=== PATIENT | male | born 1985 | race Caucasian/White ===

== ENCOUNTER 2021-10-19 16:00 | Inpatient (IN) | payer BC, SELFPAY ==
[2021-10-19 16:29] VITALS: BP 131/83; PULSE 73; TEMP 35.8
[2021-10-19 17:01] VITALS: BMI 33.5
[2021-10-19] MEDS: traZODone HCL 50 MG TABLET PO (20:01)
[2021-10-19] MEDS: hydrOXYzine HCL 25 MG TABLET PO (20:01)
[2021-10-19] MEDS: QUEtiapine Fumarate 25 MG TABLET PO (20:01)
[2021-10-19] MEDS: Melatonin 3 MG TABLET PO (20:01)
--- NOTE | 2021-10-19 20:40 | PC.ADMIT ---
Pt is a 36 year old [place]ian speaking male who presented to from [facility] at approx 1630 on a cv status. Pt is covid + and tested on , pt is asymptomatic and not contagious but continues to test positive due to having COVID within 3 months. tox screen - Per chart review, Pt presented to the [facility] ED after increasing SI stating he had a knife in the car and was going to end his life, pt also wrote suicidal notes to family. Pt had many recent stressors, 2 deaths and the end of a 6 year relationship. During the admit pt stated his anxiety and depression were both an 8 out of 10. Pt briefly spoke with MD about wanting to switch medications. Pt reported that he is having a hard time adjusting to breaking up with his girlfriend. Pt denied SI/HI/AH/VH/SIB at this time. Pt denied any trauma hx. DR Muller called and notified of admission. Pt was pleasant and cooperative during his admit. Pt signed a 3-day notice on 10/19/21.... 3 day up on 10/22/21. Start treatment plan and monitor for safety
[2021-10-20 06:00] VITALS: BP 112/61; PULSE 64; RESP 16; TEMP 36.8; O2SAT 95
[2021-10-20 08:58] LABS: Cholesterol 137 mg/dL; HDL Cholesterol 44 mg/dL; LDL Cholesterol Calculated 79 mg/dl; Triglycerides 72 mg/dL
[2021-10-20] MEDS: Escitalopram Oxalate 20 MG TABLET PO (09:01)
[2021-10-20] MEDS: QUEtiapine Fumarate 25 MG TABLET PO ×2 (09:01→14:40)
--- NOTE | 2021-10-20 16:19 | HO.HSGERICON ---
History of Present Illness Data of Consult Service Date: 10/20/21 Primary Care Provider: Unknown Physician HPI Reason for consult: admission 36M presented to inpatient psychiatry for suicidal ideation, patient denies any past medical history, denies chest pain, shortness of breath, fever, chills. He did test positive for COVID, but is recently recovered. Review of Systems Review of Systems: Yes all other systems are reviewed and are negative [facility] Medical History (Updated 10/20/21 @ 16:22 by Casey Molina MD) Depression Family History (Updated 10/20/21 @ 16:21 by Casey Molina MD) Other No family history of coronary artery disease Social History Household Members: Family Housing: House Do you presently have visiting nurse or other home services: No Patient Tobacco Use Status: Never used Tobacco Use of substances other than those prescribed or required for medical reasons: No Currently Displaying Signs/Symptoms of Drug Intoxication Withdrawal: No Have you been hit, kicked, punched, or otherwise hurt by someone within the past year? If so, by whom?: No Do you feel safe in your current relationship?: No Current Relationship Is there a partner from a previous relationship who is making you feel unsafe now?: No Are you made to feel afraid or neglected: No Advance Directives: No Advance Directives Information Provided: No Do you have thoughts of harming others: None Do you have a plan to hurt others: No Plan Recently lost weight without trying: No How much weight loss: Not applicable Eating poorly because of decreased appetite: No Nutrition screen score: 0 Nutrition Risks: No Nutritional Risk Poor oral hygiene: No Meds Allergies Allergy/AdvReac Type Severity Reaction Status Date / Time No Known Allergies Allergy Verified 10/19/21 17:03 Active Medications: Current Medications Acetaminophen (Acetaminophen 325 Mg Tablet) 650 mg PO Q6H PRN PRN Reason: Headache/Pain Mild Scale (1-3) Al Hydroxide/Mg Hydroxide (Magnesium Hydrox/Alum Hydrox 30 Ml Oral.Susp) 30 ml PO Q6H PRN PRN Reason: Heartburn/Nausea Escitalopram Oxalate (Escitalopram Oxalate 20 Mg Tablet) 20 mg PO DAILY [facility] Last Admin: 10/20/21 09:01 Dose: 20 mg Documented by: Hydroxyzine HCl (Hydroxyzine Hcl 25 Mg Tablet) 25 mg PO TID PRN PRN Reason: anxiety Last Admin: 10/19/21 20:01 Dose: 25 mg Documented by: Lorazepam (Lorazepam 1 Mg Tablet) 1 mg PO DAILY PRN PRN Reason: severe anxiety Magnesium Hydroxide (Milk Of Magnesia 30 Ml Oral.Susp) 30 ml PO DAILY PRN PRN Reason: Constipation Melatonin (Melatonin 3 Mg Tablet) 3 mg PO BEDTIME [facility] Last Admin: 10/19/21 20:01 Dose: 3 mg Documented by: Nicotine Polacrilex (Nicotine Polacrilex 2 Mg Gum) 4 mg BUCCAL Q2H PRN PRN Reason: Nicotine Cravings Quetiapine Fumarate (Quetiapine Fumarate 25 Mg Tablet) 25 mg PO TID [facility] Last Admin: 10/20/21 14:40 Dose: 25 mg Documented by: Trazodone HCl (Trazodone Hcl 50 Mg Tablet) 50 mg PO BEDTIME PRN PRN Reason: Insomnia Last Admin: 10/19/21 20:01 Dose: 50 mg Documented by: Home Medications Medication Instructions Recorded Confirmed Last Taken Type escitalopram oxalate 10 mg tablet 1 tab PO BEDTIME 10/19/21 10/19/21 10/18/21 History escitalopram oxalate 20 mg tablet 1 tab PO DAILY 10/19/21 10/19/21 10/18/21 History hydroxyzine pamoate 25 mg capsule cap PO 10/19/21 Unknown History quetiapine 25 mg tablet 1 tab PO BEDTIME 10/19/21 10/19/21 10/18/21 History sertraline 100 mg tablet 1 tab PO DAILY 10/19/21 10/19/21 10/18/21 History Results Labs Labs: Laboratory Results - last 24 hr 10/20/21 07:51 Triglycerides 72 Cholesterol 137 LDL Cholesterol, Calc 79 HDL Cholesterol 44 Assessment and Plan (1) Depression: Status: Acute Plan 36M admitted to inpatient psychiatry covid positive recently recovered, unlikely to be new infection Physical Exam Vital Signs: Last Vital Signs Temp 98.2 F 10/20/21 06:00 Pulse 64 10/20/21 06:00 Resp 16 10/20/21 06:00 BP 112/61 10/20/21 06:00 Pulse Ox 95 10/20/21 06:00 BMI result Body Mass Index 33.5 General: AO X 3, no acute distress Resp: CTA bilateral, no accessory muscles used CVS: S1,S2,RRR GI: soft, non tender, non distended Neuro: motor grossly intact, alert Neuro Cranial nerves: Yes CN's II-XII intact bilaterally
--- NOTE | 2021-10-20 17:00 | P.HPPS_ITS ---
HPI Date of Service: 10/20/21 Chief Complaint: Unspecified depressive d/o Sources of Information: patient interviewed, chart reviewed and crisis/core team assessment reviewed HPI Subjective Notes: Healy Warning, Conditional Voluntary and 3 Day Narrative: pt is a 36 yo male with hx of mild depression who presents for depression, new onset panic attacks and SI with a plan in face of grieving of ex-partner and recent break up. Pt reports that he struggles with mild depression from time to time but overall is in a good enough mood with little anxiety. He was on Zoloft 100mg unitl this past April but scheduling issues made him loose access to refills. Patient has had several psychosocial stressors over past few months. His work is seasonal and he's laid off in the winter and typically around August he starts to feel more down. The mother of his child from an overdose this past May and despite their romantic separation, they remained close friends. Soon after that pt got back together with recent girlfriend and t hought they were going to get ; he got Covid and got a little depressed being alone in the house, but was shocked when his girlfriend broke up with him and started seeing someone else. This event started him becoming more depressed and for the first time he had passive thoughts of being better off . His psychiatrist started him on Lexapro. Over last few weeks Patient developed panic attacks for the first time, 2x per week during which time he became momentarily suicidal. Just prior to admission he had a panic attack and afterword, took a knife intending to cut himself; he thought better of it and called numerous people, one of whom called back and helped him get to ED. Denies hx of manic epsisodes, behaviors; denies current substance abuse; denies AVH. 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 Substance History: drank daily for 2 weeks in July when girlfriend broke up w/ him; otherwise denies substance abuse Trauma History: denies Diagnostics Vital Signs (24Hr): Vital Signs - 24 hr 10/20/21 06:00 Temperature 98.2 F Pulse Rate 64 Respiratory Rate 16 Blood Pressure 112/61 Pulse Oximetry 95 BMI result Body Mass Index 33.5 Labs Labs: Laboratory Results - last 48 hr 10/20/21 07:51 Triglycerides 72 Cholesterol 137 LDL Cholesterol, Calc 79 HDL Cholesterol 44 Meds/Allergies Meds Home Medications Acetaminophen (Acetaminophen 325 Mg Tablet) 650 mg PO Q6H PRN PRN Reason: Headache/Pain Mild Scale (1-3) Al Hydroxide/Mg Hydroxide (Magnesium Hydrox/Alum Hydrox 30 Ml Oral.Susp) 30 ml PO Q6H PRN PRN Reason: Heartburn/Nausea Bupropion HCl (Bupropion Hcl Xl 150 Mg Tab.Er.24h) 150 mg PO DAILY [facility] Escitalopram Oxalate (Escitalopram Oxalate 10 Mg Tablet) 10 mg PO DAILY [facility] Stop: 10/22/21 11:00 Hydroxyzine HCl (Hydroxyzine Hcl 25 Mg Tablet) 25 mg PO TID PRN PRN Reason: anxiety Last Admin: 10/19/21 20:01 Dose: 25 mg Documented by: Lorazepam (Lorazepam 1 Mg Tablet) 1 mg PO DAILY PRN PRN Reason: severe anxiety Magnesium Hydroxide (Milk Of Magnesia 30 Ml Oral.Susp) 30 ml PO DAILY PRN PRN Reason: Constipation Melatonin (Melatonin 3 Mg Tablet) 3 mg PO BEDTIME [facility] Last Admin: 10/20/21 21:06 Dose: 3 mg Documented by: Mirtazapine (Mirtazapine 7.5 Mg Tablet) 7.5 mg PO BEDTIME [facility] Last Admin: 10/20/21 21:06 Dose: 7.5 mg Documented by: Nicotine Polacrilex (Nicotine Polacrilex 2 Mg Gum) 4 mg BUCCAL Q2H PRN PRN Reason: Nicotine Cravings Trazodone HCl (Trazodone Hcl 50 Mg Tablet) 50 mg PO BEDTIME PRN PRN Reason: Insomnia Last Admin: 10/19/21 20:01 Dose: 50 mg Documented by: Allergies Allergies Allergy/AdvReac Type Severity Reaction Status Date / Time No Known Allergies Allergy Verified 10/19/21 17:03 Mental Status Exam Mental Status Exam Narrative: Pt is alert and oriented; behavior is cooperative, friendly and calm; patient is not in distress; dressed in casual attire with unkempt hair but adequate hygiene; mood is described as anxious and affect congruent; eye contact appropriate; Speech is normal rate, volume and prosody and not pressured; no psychomotor agitation/retardation present; thought process is organized and goal directed; Thought content is on tx; otherwise pertinent to relevant topics and without any delusional content, paranoid ideations or grandiosity; denies any SI/HI. There is no evidence of perceptual disturbance. Patients insight and judgment appear intact. Assessment & Plan Assessment & Plan (1) MDD (major depressive disorder), single episode, severe: Status: Acute Code(s): F32.2 - Major depressive disorder, single episode, severe without psychotic features (2) Panic attack: Status: Acute Code(s): F41.0 - Panic disorder [episodic paroxysmal anxiety] Plan pt is a 36 yo male with hx of mild depression who presents for depression, new onset panic attacks and SI with a plan in face of grieving of ex-partner and recent break up. -mdd, panic -agrees to start wellbturin (disdcussed risks/side-effects) -hx of spontaneous priaprsm; still wants trazodone even after knowing risks/side-effects however agrees to start mirtazapine to help w/ sleep (and anxiety/depression) so as possibly to avoid trazodone risks Patient educated on: diagnosis, medication risk/benefits, substance abuse and therapeutic strategies Informed Consent: understands Reason for continued inpatient stay Substantial Risk for: rapid decompensation
[2021-10-20 18:00] VITALS: BP 156/83; PULSE 101; RESP 16; TEMP 36.2; O2SAT 95
[2021-10-20] MEDS: Mirtazapine 7.5 MG TABLET PO (21:06)
[2021-10-20] MEDS: Melatonin 3 MG TABLET PO (21:06)
[2021-10-21 06:00] VITALS: BP 141/74; PULSE 62; RESP 16; O2SAT 97
[2021-10-21] MEDS: Escitalopram Oxalate 10 MG TABLET PO (08:32)
[2021-10-21] MEDS: buPROPion HCl XL 150 MG TAB.ER.24H PO (08:32)
--- NOTE | 2021-10-21 10:29 | HO.PSYCHPN ---
Subjective Subjective Date of Service: 10/21/21 Reason For Visit: Unspecified depressive d/o Interim History: Patient reports that his mood is really good. He feels that medications are helpful and he is pleased with change in medication regimen. He denies any side effects. He says he slept well last night. Patient has not had any SI since admission and he remains without SI, HI or AVH. He is also optimistic about the future and continuing treatment saying he would like to get into therapy. Patient said that work is starting up again and he is looking for to going back that was going to take a few days off prior just to continue to recuperate. Patient says that the 2 weeks he was binge drinking was the 1st time he has ever done that in his life any does not think he will continue to struggle with alcohol abuse. Flame Brazing Machine Operator discussed again medication regimen, risks/side effects to which he agrees. Flame Brazing Machine Operator specially talked about the risk of trazodone and risk of Priaprsim of present given the fact that he has had spontaneous Priaprsim in the past not related to medication (and went to ED; resolved on Sudafed). He understands this risk and his vulnerability, however he would still like to continue with trazodone as needed for sleep. Patient has a 3 day notice which is due tomorrow. He said he would like to discharge, feeling stable and ready to go home. Patient is not in imminent risk for harm to self or others and his request for discharge honored. Patient shared gratitude for help received. Mental Status Exam Mental Status Exam Narrative: Pt is alert and oriented; behavior is cooperative, friendly and calm; patient is not in distress; dressed in casual attire with facial hair and adequate hygiene; mood is described as good and affect congruent, calm; eye contact appropriate; Speech is normal rate, volume and prosody and not pressured; no psychomotor agitation/retardation present; thought process is organized and goal directed; Thought content is on tx; otherwise pertinent to relevant topics and without any delusional content, paranoid ideations or grandiosity; denies any SI/HI. There is no evidence of perceptual disturbance. ?Patients insight and judgment appear intact. Diagnostics Vital Signs (24Hr): Vital Signs - 24 hr 10/20/21 18:00 10/21/21 06:00 Temperature 97.2 F Pulse Rate 101 H 62 Respiratory Rate 16 16 Blood Pressure 156/83 H 141/74 H Pulse Oximetry 95 97 BMI result Body Mass Index 33.5 Labs Labs: Laboratory Results - last 48 hr 10/20/21 07:51 Triglycerides 72 Cholesterol 137 LDL Cholesterol, Calc 79 HDL Cholesterol 44 Medications Medications Current Medications Acetaminophen (Acetaminophen 325 Mg Tablet) 650 mg PO Q6H PRN PRN Reason: Headache/Pain Mild Scale (1-3) Al Hydroxide/Mg Hydroxide (Magnesium Hydrox/Alum Hydrox 30 Ml Oral.Susp) 30 ml PO Q6H PRN PRN Reason: Heartburn/Nausea Bupropion HCl (Bupropion Hcl Xl 150 Mg Tab.Er.24h) 150 mg PO DAILY [facility] Last Admin: 10/21/21 08:32 Dose: 150 mg Documented by: Escitalopram Oxalate (Escitalopram Oxalate 10 Mg Tablet) 10 mg PO DAILY [facility] Stop: 10/22/21 11:00 Last Admin: 10/21/21 08:32 Dose: 10 mg Documented by: Hydroxyzine HCl (Hydroxyzine Hcl 25 Mg Tablet) 25 mg PO TID PRN PRN Reason: anxiety Last Admin: 10/19/21 20:01 Dose: 25 mg Documented by: Lorazepam (Lorazepam 1 Mg Tablet) 1 mg PO DAILY PRN PRN Reason: severe anxiety Magnesium Hydroxide (Milk Of Magnesia 30 Ml Oral.Susp) 30 ml PO DAILY PRN PRN Reason: Constipation Melatonin (Melatonin 3 Mg Tablet) 3 mg PO BEDTIME [facility] Last Admin: 10/20/21 21:06 Dose: 3 mg Documented by: Mirtazapine (Mirtazapine 7.5 Mg Tablet) 7.5 mg PO BEDTIME [facility] Last Admin: 10/20/21 21:06 Dose: 7.5 mg Documented by: Nicotine Polacrilex (Nicotine Polacrilex 2 Mg Gum) 4 mg BUCCAL Q2H PRN PRN Reason: Nicotine Cravings Trazodone HCl (Trazodone Hcl 50 Mg Tablet) 50 mg PO BEDTIME PRN PRN Reason: Insomnia Last Admin: 10/19/21 20:01 Dose: 50 mg Documented by: Allergies Allergies Allergy/AdvReac Type Severity Reaction Status Date / Time No Known Allergies Allergy Verified 10/19/21 17:03 Assessment & Plan Assessment & Plan (1) MDD (major depressive disorder), single episode, severe: Status: Acute Code(s): F32.2 - Major depressive disorder, single episode, severe without psychotic features (2) Panic attack: Status: Acute Code(s): F41.0 - Panic disorder [episodic paroxysmal anxiety] Plan pt is a 36 yo male with hx of mild depression who presents for depression, new onset panic attacks and SI with a plan in face of grieving of ex-partner and recent break up. -mdd, panic -agrees to start wellbturin (discussed risks/side-effects) -hx of spontaneous priaprsm; still wants trazodone even after knowing risks/side-effects however agrees to start mirtazapine to help w/ sleep (and anxiety/depression) so as possibly to avoid trazodone risks -SI was resolved even prior to admission and has remained so throughout. Patient's mood is good, and affect is calm and bright. He is future oriented and feels ready to go home, feeling stable and safe for discharge. Patient feels that medication regimen is helpful and he wants to continue on it. He has not had any panic attacks since coming to the unit. He is looking forward to returning to work saying he does best when he's acitve. Discussed alcohol abuse and pt feels it was situational, that drinking daily had never happened before and that he will be able tor remain sober. Pt submitted a 3day notice which is due tomorrow. He is not in imminent risk of harm to self or others and does not meet criteria for involuntary commitment. Pt's request for discharge honored. Flame Brazing Machine Operator discussed again medication regimen, risks/side effects to which he agrees. Flame Brazing Machine Operator specially talked about the risk of trazodone and risk of Priaprsim of present given the fact that he has had spontaneous Priaprsim in the past not related to medication (and went to ED; resolved on Sudafed). He understands this risk and his vulnerability, however he would still like to continue with trazodone as needed for sleep. Patient has a 3 day notice which is due tomorrow. He said he would like to discharge, feeling stable and ready to go home. Patient is not in imminent risk for harm to self or others and his request for discharge honored. Patient shared gratitude for help received. I spent minutes with the patient and/or on the patient floor today, greater than?50% of which was spent counseling/coordinating care. Patient educated on: diagnosis, medication risk/benefits, substance abuse and therapeutic strategies Informed Consent: understands Reason for contiued inpatient stay Substantial Risk for: stable for discharge
[2021-10-21 18:00] VITALS: BP 148/88; PULSE 81; RESP 18; TEMP 36.4; O2SAT 97
[2021-10-21] MEDS: Mirtazapine 7.5 MG TABLET PO (20:12)
[2021-10-21] MEDS: Melatonin 3 MG TABLET PO (20:12)
[2021-10-22 06:00] VITALS: BP 123/82; PULSE 73; TEMP 37; O2SAT 97
[2021-10-22] MEDS: buPROPion HCl XL 150 MG TAB.ER.24H PO (09:02)
[2021-10-22] MEDS: Escitalopram Oxalate 10 MG TABLET PO (09:02)
--- NOTE | 2021-10-22 09:14 | PM.PSYDC ---
DS: Providers Provider Date of Service: 10/22/21 Date of admission: 10/19/21 16:00 Date of discharge: 10/22/21 Primary care physician: Unknown Physician Attending physician on admission: Blade Muller Consults: 10/19/21 18:07 Consult to Hospitalist Routine Consulting Provider: Hospitalist Reason For Exam: admission physical Attending physician on discharge: Blade Muller DS: Diagnosis Discharge Diagnosis (1) MDD (major depressive disorder), single episode, severe: Status: Acute (2) Panic attack: Status: Resolved DS: Medications Discharge Medications Home Medications: Previous Rx's Medication Instructions Recorded bupropion HCl 150 mg 24 hr tablet, 150 mg PO DAILY 30 Days #30 tab 10/22/21 extended release hydroxyzine pamoate 25 mg capsule 25 mg PO DAILY PRN 30 Days #60 cap 10/22/21 melatonin 3 mg tablet 3 mg PO BEDTIME #0 tab 10/22/21 mirtazapine 7.5 mg tablet 7.5 mg PO BEDTIME 30 Days #30 tab 10/22/21 Mental Status Exam Mental Status Exam Narrative: Pt is alert and oriented; behavior is cooperative, friendly and calm; patient is not in distress; dressed in casual attire with facial hair and adequate hygiene; mood is described as good and affect congruent, calm; eye contact appropriate; Speech is normal rate, volume and prosody and not pressured; no psychomotor agitation/retardation present; thought process is organized and goal directed; Thought content is on tx and discharge; otherwise pertinent to relevant topics and without any delusional content, paranoid ideations or grandiosity; denies any SI/HI. There is no evidence of perceptual disturbance. ?Patients insight and judgment are intact. Data Data Completed and Pending Completed studies during hospitalization [Text1]: 10/20/21 07:51 Triglycerides 72 Cholesterol 137 LDL Cholesterol, Calc 79 HDL Cholesterol 44 DS: Summary Hospital Course Hospital Course: pt is a 36 yo male with hx of mild depression who presents for depression, new onset panic attacks and SI with a plan in face of grieving of ex-partner and recent break up. -mdd, panic On admission, pt calm, cooperative w/out SI -agrees to start wellbturin? (discussed risks/side-effects) -hx of spontaneous priaprsm however still wants trazodone even after knowing risks/side-effects; agrees to start mirtazapine to help w/ sleep (and anxiety/depression) so as possibly to avoid trazodone risks -SI was resolved even prior to admission and has remained so throughout.? Patient's mood reported as good throughout admission and affect is calm and bright.? He is future oriented and feels ready to go home, feeling stable and safe for discharge.? Patient feels that medication regimen is helpful and he wants to continue on it.? He has not had any panic attacks since coming to the unit. He is looking forward to returning to work saying he does best when he's acitve. Discussed alcohol abuse and pt feels it was situational, that this was the first time he'd ever drank daily and that he will be able tor remain sober. Pt submitted a 3day notice which was coming due. On day of discharge, Patient reports that his mood is really good.? He feels that medications are helpful and he is pleased with change in medication regimen.? He denies any side effects.? He says he slept well last night.? Patient has not had any SI since admission and he remains without SI, HI or AVH.? He is also optimistic about the future and continuing treatment saying he would like to get into therapy.? Patient said that work is starting up again and he is looking for to going back. Client Experience Specialist discussed again medication regimen, risks/side effects to which he agrees.? Client Experience Specialist specially talked about the risk of trazodone and risk of Priaprsim? of present given the fact that he has had spontaneous Priaprsim in the past not related to medication (and went to ED; resolved on Sudafed).? He understands this risk and his vulnerability, however he would still like to continue with trazodone as needed for sleep.? feeling stable and ready to go home.? Patient is not in imminent risk for harm to self or others and does not meet criteria for involuntary commitment. Patient's request for discharge honored. Patient shared gratitude for help received. Time spent discussing smoking cessation with patient: 3 to 10 minutes Status at Discharge Functional status at discharge: independent ambulation Overall status at discharge: patient is back to baseline Time Spent with Patient Time attestation: Total time spent providing and/or coordinating discharge services: Time spent: Less than 30 minutes Discharge Plan Discharge Patient Disposition: Home, Self-Care Discharge Diagnosis: MDD, single episode, severe without psychosis, in full remission Referrals: Therapy Intake: Gloria Copeland [Other] - 10/27/21 2:00 pm (The therapy intake is a Telehealth appointment) Psychiatric Med Evaluation: Imanricky Bunn [Other] - 11/16/21 11:30 am (This is a virtual Telehealth appointment ) Psychiatric Med Management: Iman Bunn [Other] - 12/21/21 10:00 am (This is a virtual Telehealth appointment ) Gabe Heller MD [Physician] - 10/26/21 2:30 pm (in office) Discharge Medications: New bupropion HCl 150 mg Tablet Extended Release 24 Hr 150 mg PO DAILY 30 Days Qty: 30 0RF mirtazapine 7.5 mg Tablet 7.5 mg PO BEDTIME 30 Days Qty: 30 0RF melatonin 3 mg Tablet 3 mg PO BEDTIME Qty: 0 0RF Changed hydroxyzine pamoate 25 mg capsule 25 mg PO DAILY PRN (Reason: anxiety/panic) 30 Days Qty: 60 0RF Rx Instructions: take 1 to 2 capsules daily as needed for anxiety Discontinued quetiapine 25 mg tablet 1 tab PO BEDTIME 0RF sertraline 100 mg tablet 1 tab PO DAILY 0RF escitalopram oxalate 10 mg tablet 1 tab PO BEDTIME 0RF escitalopram oxalate 20 mg tablet 1 tab PO DAILY 0RF Discharge Orders: Discharge Order (Routine); Ordered 10/22/21 Ordered By: Blade Muller Diet: regular diet Activity on Discharge: As tolerated Stand Alone Forms: Patient Portal Discharge page, Community Support Care Plan Goals: Maintain mood and safe behaviors Take medications as prescribed Continue to pursue sobriety Practice coping skills Continue with outpatient providers and reach out to them as needed Health Concerns: Mood stability and behaviors Sobriety Plan of Treatment: Follow up with your PCP, psychiatric provider and other outpatient providers regarding above concerns Take medications as prescribed Assessment: Risk assessment at time of discharge:? Patient was interviewed prior to discharge and found to be fully oriented and without any SI or HI. Patient has insight and demonstrates good judgment in terms of wanting to pursue treatment. Patient is not in imminent risk of harm to self or others and has a safety plan that includes presenting to the closest ER or calling 911 if feeling unsafe.? Patient has been observed closely by nursing and unit staff throughout admission; patient has not engaged in any behaviors that suggest dangerousness to self or others and has demonstrated appropriate behaviors and impulse control Discharge Date/Time: 10/22/21 13:16
== END 2021-10-22 13:16 | disposition home or self-care (01) | DRG 751 ==
PROVIDERS: Admitting Provider Psychiatry & Neurology Psychiatry; Visit Provider Psychiatry & Neurology Psychiatry
DX: F32.2 Major depressive disorder, single episode, severe without psychotic features (principal); R45.851 Suicidal ideations; F41.0 Panic disorder [episodic paroxysmal anxiety]; Z56.89 Other problems related to employment; Z86.16 Personal history of COVID-19; Z79.899 Other long term (current) drug therapy
CPT/HCPCS: 36415; 80061